=== PATIENT | female | born 1965 | race Caucasian/White ===

== ENCOUNTER 2019-10-07 18:05 | Emergency (ER) | payer MEDICAID ==
[2019-10-07 18:20] VITALS: BP 133/101
--- NOTE | 2019-10-07 18:50 | ED Physician Documentation ---
History of Present Illness - Stated complaint Stated Complaint: HOT,COUGH - Chief complaint Chief Complaint: General - History obtained from History obtained from: Patient - Additonal information Additional information: Patient comes emergency department because 1 of her supervisors told her she should come here and get further evaluation after being found to have a cough for approximately the last week. Patient states that about 5 days ago, she had a temperature of 100.1, But that she has not had a fever since. She states that the next day, she went to the acute respiratory clinic at [facility] and was tested for coronavirus. She states the last time she checked for her results was this morning, and the results were not back yet. She has had several coworkers who have been positive for [place] 19, and she was concerned that she may have contracted this, as well. The patient states that she has a dry cough and some discomfort in her throat and upper chest, especially with the coughing. She states that when she breathes out, causes her to want to cough more, also. However, the patient states she otherwise does not feel worse. No abdominal symptoms. No sputum production. Patient is not a smoker. No asthma or other pulmonary history. No other complaints at this time. Review of Systems Ten Systems: 10 systems reviewed and negative Constitutional: reports: Reviewed and negative Eyes: reports: Reviewed and negative Ears: reports: Reviewed and negative Nose: reports: Reviewed and negative Throat: reports: Reviewed and negative Cardiac: reports: Reviewed and negative Respiratory: reports: Cough GI: reports: Reviewed and negative : reports: Reviewed and negative Skin: reports: Reviewed and negative Musculoskeletal: reports: Reviewed and negative Neurologic: reports: Reviewed and negative Psychiatric: reports: Reviewed and negative Endocrine: reports: Reviewed and negative Immunocompromised: reports: Reviewed and negative PD PAST MEDICAL HISTORY - Past Medical History Past Medical History: No - Present Medications Home Medications: Ambulatory Orders Medication Instructions Recorded Confirmed Benzonatate [Tessalon Perle] 100 - 200 mg PO TID PRN #30 capsule 10/07/19 - Social History Does the pt smoke?: No Smoking Status: Never smoker - Immunizations Immunizations are current?: Yes - POLST Patient has POLST: No PD ED PE NORMAL - Vitals Vital signs reviewed: Yes - General General: Alert and oriented X 3, No acute distress - HEENT HEENT: Atraumatic, PERRL, EOMI, Moist mucous membranes - Neck Neck: Supple, no meningeal sign - Cardiac Cardiac: RRR, No murmur - Respiratory Respiratory: No respiratory distress, Clear bilaterally, Other (Patient has a mild, intermittent dry cough.) - Derm Derm: Normal color, Warm and dry, No rash - Extremities Extremities: No deformity, No edema, No calf tenderness / cord - Neuro Neuro: Alert and oriented X 3, classification officer 2-12 intact, No motor deficit, No sensory deficit, Normal speech - Psych Psych: Normal mood, Normal affect Results - Vitals Vitals: Vital Signs - 24 hr 10/07/19 10/07/19 18:17 18:20 Temperature 37.1 C Heart Rate 93 75 Respiratory 16 20 Rate Blood Pressure 133/101 H O2 Saturation 98 98 Oxygen O2 Source Room air PD MEDICAL DECISION MAKING - ED course Complexity details: reviewed results, considered differential, d/w patient ED course: The patient was actually quite well-appearing in the emergency department. She was afebrile and had good oxygen saturation and clear lungs. She did not appear ill, other than her cough. I did have the patient recheck the [employer] site, and it was found that her coronavirus testing results had come back today since she last checked, and that she was negative. I discussed with her that most probably, she is not actively infected with the virus. She has been given a work note for tomorrow, and she will need to work out with her employers whether she may continue to work while she has her current symptoms. I have also prescribed her Tessalon Perles to help with symptomatic relief. We have discussed the usual indications for return. Departure - Departure Disposition: 01 Home, Self Care Clinical Impression: Upper respiratory infection Qualifiers: URI type: unspecified viral URI Qualified Code(s): J06.9 - Acute upper respiratory infection, unspecified Condition: Fair Instructions: ED URI Viral Prescriptions: Benzonatate [Tessalon Perle] 100 - 200 mg PO TID PRN #30 capsule PRN Reason: Cough Comments: Your covid test is negative, meaning it is most probable that you do not have active coronavirus infection at this time. Most likely, you have one of the many common viruses that go around this time of year. Your lungs are clear, you have no fever, and your oxygen saturations are good. Your supervisors will have to decide whether they want you to continue to work while you have a cough. It may be prudent to wear a mask as long as you are coughing if you do go back to work. If you develop fevers or severe shortness of breath, please return to the emergency department for further evaluation.Otherwise, you may follow-up with your primary care physician. Forms: Activity restrictions
== END 2019-10-07 19:00 | disposition home or self-care (01) ==
LOC: ED 18:05
DX: J06.9 Acute upper respiratory infection, unspecified (principal)
CPT/HCPCS: 99282; 99283